=== PATIENT | female | born 1980 | race Caucasian/White ===

== ENCOUNTER 2017-10-04 10:00 | Inpatient (IN) | payer BC ==
[2017-10-03 15:04] VITALS: BMI 51.2
[2017-10-04] MEDS ORDERED: CITRIC ACID-SODIUM CITRATE 15 ML CUP PO ONE (10:37)
[2017-10-04] MEDS ORDERED: LACTATED RINGERS 1,000 ML IV ONE (10:37)
[2017-10-04 11:16] LABS: Basophils # (A) 0.1 k/uL (0-0.2); Basophils % (A) 0 %; Eosinophils # (A) 0.2 k/uL (0-0.7); Eosinophils % (A) 1 %; HCT 35.8 % (34.0-46.0); HGB 11.7 gm/dL (11.4-16.0); Lymphocytes # (A) 2.1 k/uL (1.0-4.8); Lymphocytes % (A) 15 %; MCH 27.2 pg (25.0-35.0); MCHC 32.8 g/dL (31.0-37.0); MCV 82.8 fL (80.0-100.0); Mean Platelet Volume 7.1; Monocytes # (A) 0.4 k/uL (0-1.0); Monocytes % (A) 3 %; Neutrophils # (A) 11.4 k/uL (1.3-7.7); Neutrophils % (A) 80 %; Platelet Count 239 k/uL (150-450); RBC 4.32 m/uL (3.80-5.40); WBC 14.3 k/uL (3.8-10.6)
--- NOTE | 2017-10-04 11:54 | P.HPOB ---
History of Present Illness H&P Date: 10/04/17 Chief Complaint: 39-4/7 weeks, previous section 2, undesired fertility The patient is a 37-year-old 3 para 2 scissors or 2 who presents at 39-4 /7 weeks as established by last menstrual period and confirmed by an 11 week ultrasound. She has a history of 2 previous sections and has requested a repeat section with intraoperative bilateral tubal occlusion using Filshie clips. The risks and complications have been discussed. Her has been essentially uncomplicated though she is morbidly obese and was found to have group B strep at her 35 week culture. The infant has also been breech for the third trimester and remains so at this time. She reportedly also has a fibroid uterus. Obstetrical history: 3 para 2002 with 2 term sections without complications. Current statistics are listed in history of present illness. EDC of 10/07/2017 was established by last menstrual period and confirmed by 11 week ultrasound. Laboratory workup demonstrates a blood type of A+ with a negative antibody screen. Rubella status is immune. Remainder of her laboratory workup was within normal limits. Early Glucola was elevated and followed up with a normal three-hour glucose tolerance test. Second trimester Glucola was within normal limits. Group B strep status is positive. Gynecologic history: Unremarkable with no history of any infections to include STDs. Review of Systems Review of systems is confined to history of present illness. Past Medical History Past Medical History: Hypertension Additional Past Medical History / Comment(s): amemia History of Any Multi-Drug Resistant Organisms: None Reported Past Surgical History: Section, Hernia Repair, Tonsillectomy Additional Past Surgical History / Comment(s): C/S x2 Past Anesthesia/Blood Transfusion Reactions: No Reported Reaction Past Psychological History: No Psychological Hx Reported Smoking Status: Former smoker Past Alcohol Use History: None Reported Additional Past Alcohol Use History / Comment(s): quit smoking 18 yrs, smoked for 2 yrs, 1/2 PPD Past Drug Use History: None Reported - Past Family History Mother Family Medical History: No Reported History Medications and Allergies Home Medications Medication Instructions Recorded Confirmed Type RX: Loratadine [Claritin] 10 mg PO DAILY 06/09/14 10/04/17 History Ferrous Sulfate [Feosol] 325 mg PO DAILY 10/03/17 10/04/17 History Labetalol [Trandate] 100 mg PO BID 10/03/17 10/04/17 History Pnv No.95/Ferrous Fum/Folic AC 1 each PO DAILY 10/03/17 10/04/17 History [ Multivitamin Tablet] Allergies Allergy/AdvReac Type Severity Reaction Status Date / Time codeine Allergy hives Verified 10/04/17 10:28 gluten AdvReac Diarrhea Verified 10/04/17 10:28 Exam - Vital Signs Vital signs: Vital Signs Temp Pulse Resp BP Pulse Ox 10/04/17 10:26 96.7 F L 87 16 143/72 98 Intake and Output 10/03/17 10/04/17 10/04/17 22:59 06:59 14:59 Other: Weight 166.468 kg 166.468 kg Patient Weight 10/05/17 06:59 Weight 166.468 kg In general, this is a morbidly obese white female in no acute distress. Her heart has a regular rhythm and rate without murmur. Her lungs are clear to auscultation bilaterally in all benitez. Her abdomen is morbidly obese, nondistended, has normal active bowel sounds, is soft, nontender, and without any palpable masses aside from uterine fundus. Her extremities without any cyanosis, clubbing, or edema and are nontender to palpation bilaterally. Digital cervical examination is deferred. Results Result Diagrams: 10/04/17 10:30 Abnormal Lab Results - Last 24 Hours (Table) 10/04/17 Range/Units 10:30 WBC 14.3 H (3.8-10.6) k/uL Neutrophils # 11.4 H (1.3-7.7) k/uL Assessment and Plan (1) Term Current Visit: Yes Status: Acute Code(s): Z34.80 - ENCOUNTER FOR SUPRVSN OF NORMAL , UNSP TRIMESTER SNOMED Code(s): 33067206 (2) Previous section Current Visit: Yes Status: Acute Code(s): Z98.891 - HISTORY OF UTERINE SCAR FROM PREVIOUS SURGERY SNOMED Code(s): 028151902 (3) Family planning Current Visit: Yes Status: Acute Code(s): Z30.09 - ENCOUNTER FOR OTH GENERAL CNSL AND ADVICE ON CONTRACEPTION SNOMED Code(s): 884307238 Plan: The patient is admitted for repeat section with intraoperative bilateral tubal occlusion using Filshie clips. The risks and complications have been thoroughly discussed. The typical hospital and postoperative courses have also been thoroughly discussed.
[2017-10-04] MEDS ORDERED: KETOROLAC 30 MG/ML 1 ML VIAL ONE (12:20)
[2017-10-04] MEDS ORDERED: OXYTOCIN 10 UNIT/ML 1 ML VIAL ONE (12:20)
[2017-10-04] MEDS ORDERED: NALBUPHINE 10 MG/ML AMPUL ONE (12:20)
[2017-10-04] MEDS ORDERED: ONDANSETRON 4 MG/2 ML VIAL ONE (12:20)
[2017-10-04] MEDS ORDERED: MORPHINE SULFATE (PF) 0.3 MG/0.3 ML SYR ONE (12:20)
[2017-10-04] MEDS ORDERED: NALOXONE 0.4 MG/ML 1 ML VIAL IV PRN (13:05)
[2017-10-04] MEDS ORDERED: MORPHINE SULFATE 4 MG/ML SYRINGE IVP PRN (13:05)
[2017-10-04] MEDS ORDERED: ONDANSETRON 4 MG/2 ML VIAL IVP PRN (13:05)
[2017-10-04] MEDS ORDERED: diphenhydrAMINE 50 MG/ML 1 ML VIAL IVP PRN ×3 (13:05→13:37)
[2017-10-04] MEDS ORDERED: NALBUPHINE 10 MG/ML AMPUL IV PRN (13:05)
[2017-10-04] MEDS ORDERED: KETOROLAC 30 MG/ML 1 ML VIAL IVP PRN (13:05)
[2017-10-04] MEDS ORDERED: SIMETHICONE 80 MG CHEWABLE PO PRN (13:37)
[2017-10-04] MEDS ORDERED: METOCLOPRAMIDE 5 MG/ML 2 ML VIAL IVP PRN (13:37)
[2017-10-04] MEDS ORDERED: ACETAMINOPHEN TAB 325 MG TAB PO PRN (13:37)
[2017-10-04] MEDS ORDERED: diphenhydrAMINE 50 MG CAP PO PRN (13:37)
[2017-10-04] MEDS ORDERED: ZOLPIDEM 5 MG TAB PO PRN (13:37)
[2017-10-04] MEDS ORDERED: diphenhydrAMINE 25 MG CAP PO PRN (13:37)
[2017-10-04] MEDS ORDERED: LANOLIN CREAM 5 GM TUBE TOPICAL PRN (13:37)
[2017-10-04] MEDS ORDERED: traMADol 50 MG TAB PO PRN (13:40)
[2017-10-04] MEDS ORDERED: OXYTOCIN 20 UNITS/1000 ML NS 1,000 ML IV SCH (13:45)
--- NOTE | 2017-10-04 13:50 | P.OP ---
Date of Procedure: 10/04/17 Preoperative Diagnosis: #1. 39-4/7 weeks, previous section x2 #2. Undesired fertility #3. Advanced maternal age Postoperative Diagnosis: Same Procedure(s) Performed: #1. Repeat low transverse section #2. Intraoperative bilateral tubal occlusion using Filshie clips Anesthesia: spinal Surgeon: Arnulfo Sloan Air Pollution Specialist #1: Montserrat Delgado Estimated Blood Loss (ml): 600 IV fluids (ml): 1,900 Urine output (ml): 250 Pathology: other (Placenta) Condition: stable Disposition: floor Operative Findings: Intraoperatively, the uterus was found to have minimal scarring but was significantly enlarged with fibroids. Intraoperatively, the fetus was found to be in vertex presentation though it was anticipated to be breech as that had been the presentation in the office for a number of weeks. In either case, she was delivered of a viable 8 lbs. 13 oz. baby boy with Apgars of 9 at 1 minute and 9 at 5 minutes delivered in the left occiput transverse position with the assistance of a mighty Vac vacuum. The placenta was delivered manually, intact , and grossly normal with a grossly normal three-vessel cord. The uterus was significantly enlarged as a general rule and was noted to have one large approximately 4-5 cm right fundal fibroid with multiple smaller fibroids scattered along the posterior wall of the uterus. The bilateral fallopian tubes were occluded using Filshie clips in the isthmic portion. Description of Procedure: The patient was prepped and draped in usual fashion after spinal anesthesia was administered by the anesthesiologist. A Pfannenstiel incision was made and extended into the abdominal cavity with minimal difficulty. The bladder peritoneum was noted to be significantly distal to our intended site of incision. A 2 cm incision was made in the transverse plane of the lower uterine segment which was found to be extraordinarily thick. Ultimately, the uterus was entered and clear fluid encountered. The incision was extended in both directions bluntly. The head was encountered in the incision and, secondary to the patient's morbid obesity fundal pressure oh would not produce the proper angle to help deliver the head. As result, a mighty Vac vacuum was placed on the occiput and the head elevated gently through the incision with fundal pressure as well. The nose and mouth were thoroughly suctioned and the remainder of the delivered onto the field where the cord was doubly clamped and cut and the passed for resuscitative measures with weight and Apgars as noted above. A segment of cord was doubly clamped, cut, and set aside should cord gases become necessary. The placenta was delivered manually and intact as noted above. The uterus was exteriorized and the interior cavity of the uterus swept of any remaining placental or membranous fragments. The margins of the incision were grasped with Almonte clamps and the incision was closed in 2 layers. The first layer was a running locking stitch of 0 chromic catgut from margin to margin followed by a running imbricating layer of 0 chromic catgut from margin to margin. Any small points of bleeding were made hemostatic with the Bovie. The uterine and ovarian findings are as noted above with the uterus being significantly enlarged as a general rule and fibroids as noted above as well. Attention was turned to the fallopian tubes where a Filshie clip was placed across the isthmic portion of each fallopian tube and firmly affixed. The uterus was replaced within the abdominal cavity after suctioning the posterior cul-de-sac with a guard. The gutters were swept of any remaining blood, fluid, or clot and the incision reexamined. Any further small points of bleeding were made hemostatic with the Bovie. Once hemostasis was established, the parietal peritoneum was loosely reapproximated in the layer of muscles examined and made hemostatic with the Bovie. The fascia was closed with 2 running stitches of 0 Vicryl proceeding from lateral margins to the midpoint. The subcutaneous tissues were irrigated, made hemostatic with the Bovie, and reapproximated with a running stitch of 30 plain catgut. The skin was reapproximated with a running subcuticular stitch of 4-0 Vicryl from margin to margin followed by half-inch Steri-Strips placed with Mastisol. Estimated blood loss for the case was approximately 600 mL. There were no complications. All sponge, instrument, and needle counts were correct. Both mother and infant are resting comfortably in recovery.
[2017-10-04] MEDS: LACTATED RINGERS 1,000 ML IV SCH ×3 (17:08→22:20)
[2017-10-04] MEDS: SENNOSIDES-DOCUSATE SODIUM 1 EACH TAB PO SCH (21:44)
[2017-10-05] MEDS: LACTATED RINGERS 1,000 ML IV SCH ×2 (04:51→18:09)
[2017-10-05 06:54] LABS: Basophils # (A) 0.1 k/uL (0-0.2); Basophils % (A) 0 %; Eosinophils # (A) 0.2 k/uL (0-0.7); Eosinophils % (A) 1 %; HCT 30.2 % (34.0-46.0); Lymphocytes # (A) 2.6 k/uL (1.0-4.8); Lymphocytes % (A) 19 %; MCH 26.8 pg (25.0-35.0); MCHC 31.7 g/dL (31.0-37.0); MCV 84.4 fL (80.0-100.0); Mean Platelet Volume 7.8; Monocytes # (A) 0.5 k/uL (0-1.0); Monocytes % (A) 4 %; Neutrophils # (A) 10.2 k/uL (1.3-7.7); Neutrophils % (A) 75 %; Platelet Count 205 k/uL (150-450); RBC 3.57 m/uL (3.80-5.40); RDW 13.9 % (11.5-15.5); WBC 13.7 k/uL (3.8-10.6)
[2017-10-05 07:26] LABS: HGB 9.6 gm/dL (11.4-16.0)
[2017-10-05] MEDS: SENNOSIDES-DOCUSATE SODIUM 1 EACH TAB PO SCH ×2 (07:44→21:51)
--- NOTE | 2017-10-05 10:32 | P.PN ---
Progress Note - Text Progress Note Date: 10/05/17 Postoperative day 1 status post section under spinal anesthesia, and intrathecal morphine given for postoperative analgesia, patient doing well, there is no anesthesia related complications, Patient had no headache, vital signs stable , Assessment and plan= postop day 1 status post , doing well there is no anesthesia related complication.
--- NOTE | 2017-10-05 10:39 | P.PNOBGPC ---
Subjective - Subjective Principal diagnosis: Repeat section Interval history: Postop day 1 status post repeat low transverse section and bilateral tubal ligation. She has not been able to spontaneously void since her Summers catheter was removed. She has been straight cath 1 for a large amount of urine. She is complaining of some bladder fullness and discomfort at this time. Patient reports: Reports appetite normal, Reports pain well controlled, Reports ambulating normally, Denies voiding normally, Denies dizzy ambulation, Denies nauseated : doing well Objective - Vital Signs Latest vital signs: Vital Signs Temp Pulse Resp BP Pulse Ox 10/05/17 08:00 98.4 F 68 16 99/62 10/05/17 07:24 18 10/05/17 06:00 16 10/05/17 04:00 98.2 F 78 16 105/59 98 10/05/17 02:00 16 10/05/17 00:00 98.3 F 68 16 101/58 98 10/04/17 21:44 18 97 10/04/17 20:00 98.3 F 69 18 103/56 97 10/04/17 18:05 16 98 10/04/17 16:05 16 10/04/17 15:35 98.4 F 65 16 115/56 98 10/04/17 15:05 80 16 101/65 98 10/04/17 14:35 98.4 F 68 16 110/57 10/04/17 14:20 76 16 96/53 98 10/04/17 14:05 80 16 105/56 98 10/04/17 13:50 72 16 109/59 97 10/04/17 13:35 98.4 F 68 16 108/57 97 Intake and Output 10/04/17 10/05/17 10/05/17 22:59 06:59 14:59 Intake Total 500 Output Total 1000 500 Balance -500 -500 Intake: Oral 500 Output: Urine 400 500 Uretheral (Summers) 500 Estimated Blood Loss 600 Other: Voiding Method Toilet # Voids 0 - Exam Extremities: Present: edema Abdomen: Present: soft Incision: Present: dry, dressed Uterus: Present: other (Unable to palpate) - Labs Labs: Abnormal Lab Results - Last 24 Hours (Table) 10/04/17 10/05/17 Range/Units 10:30 06:36 WBC 14.3 H 13.7 H (3.8-10.6) k/uL RBC 3.57 L (3.80-5.40) m/uL Hgb 9.6 L D (11.4-16.0) gm/dL Hct 30.2 L (34.0-46.0) % Neutrophils # 11.4 H 10.2 H (1.3-7.7) k/uL Assessment and Plan (1) Advanced maternal age (AMA) in Current Visit: Yes Status: Acute Code(s): TIO5011 - SNOMED Code(s): 438136601 (2) Family planning Current Visit: Yes Status: Acute Code(s): Z30.09 - ENCOUNTER FOR OTH GENERAL CNSL AND ADVICE ON CONTRACEPTION SNOMED Code(s): 839285552 (3) Obesity Current Visit: Yes Status: Acute Code(s): E66.9 - OBESITY, UNSPECIFIED SNOMED Code(s): 279935382 (4) Previous section Current Visit: Yes Status: Acute Code(s): Z98.891 - HISTORY OF UTERINE SCAR FROM PREVIOUS SURGERY SNOMED Code(s): 739894775 (5) S/P section Narrative/Plan: Postop day 1 status post repeat low transverse section and bilateral tubal ligation. Straight cath when necessary for inability to void status post spinal anesthetic. I anticipate this will resolve today. Otherwise routine care. Current Visit: Yes Status: Acute Code(s): Z98.891 - HISTORY OF UTERINE SCAR FROM PREVIOUS SURGERY SNOMED Code(s): 326488687 (6) Term Current Visit: Yes Status: Acute Code(s): Z34.80 - ENCOUNTER FOR SUPRVSN OF NORMAL , UNSP TRIMESTER SNOMED Code(s): 86546591
[2017-10-05] MEDS: IBUPROFEN 600 MG TAB PO PRN (18:08)
[2017-10-05 22:42] VITALS: RESP 18
[2017-10-06] MEDS: IBUPROFEN 600 MG TAB PO PRN (08:19)
[2017-10-06] MEDS: SENNOSIDES-DOCUSATE SODIUM 1 EACH TAB PO SCH (08:19)
[2017-10-06 09:13] VITALS: BP 136/71; PULSE 93; TEMP 98.1
--- NOTE | 2017-10-06 11:19 | P.DS ---
Providers Date of admission: 10/04/17 10:00 Expected date of discharge: 10/06/17 Attending physician: Arnulfo Sloan Primary care physician: Justin Vincent - Discharge Diagnosis(es) (1) Advanced maternal age (AMA) in Current Visit: Yes Status: Acute (2) Family planning Current Visit: Yes Status: Acute (3) Obesity Current Visit: Yes Status: Acute (4) Previous section Current Visit: Yes Status: Acute (5) S/P section Current Visit: Yes Status: Acute (6) Term Current Visit: Yes Status: Acute (7) Fibroid uterus Current Visit: Yes Status: Acute (8) Hypertension Current Visit: Yes Status: Acute Hospital Course: This is a 37-year-old woman who is admitted at 39+ weeks gestation for scheduled repeat low transverse section and bilateral tubal ligation. Please see the history and physical for complete details. Following admission the patient went to the operating room where she underwent an uncomplicated repeat low transverse section under spinal anesthetic. Findings at the time of surgery were significant for maternal morbid obesity, enlarged fibroid uterus and male infant in the vertex presentation. Weight was 8 lbs. 13 oz. Apgars 9 at 1 minute and 9 at 5 minutes. She underwent a bilateral tubal occlusion with Filshie clips. Her postoperative course was unremarkable. By postoperative day #1 she did have some difficulty voiding spontaneously that did require straight catheter 2 this then did resolve. Otherwise her incision appeared to be well healing, her vital signs were stable and she was able to ambulate and void without difficulty. She was therefore discharged home on postoperative day #2 with routine instructions for care and follow-up. Procedures: Repeat low transverse section and bilateral tubal ligation Patient Condition at Discharge: Good Plan - Discharge Summary Discharge Rx Participant: No New Discharge Prescriptions: New Ibuprofen [Motrin] 600 mg PO Q6HR PRN #30 tab PRN Reason: Mild Pain Or Fever >= 100.5 No Action Loratadine [Claritin] 10 mg PO DAILY Pnv No.95/Ferrous Fum/Folic AC [ Multivitamin Tablet] 1 each PO DAILY Ferrous Sulfate [Feosol] 325 mg PO DAILY Labetalol [Trandate] 100 mg PO BID Discharge Medication List Loratadine [Claritin] 10 mg PO DAILY 06/09/14 [History] Ferrous Sulfate [Feosol] 325 mg PO DAILY 10/03/17 [History] Labetalol [Trandate] 100 mg PO BID 10/03/17 [History] Pnv No.95/Ferrous Fum/Folic AC [ Multivitamin Tablet] 1 each PO DAILY [History] Ibuprofen [Motrin] 600 mg PO Q6HR PRN #30 tab 10/06/17 [Rx] Follow up Appointment(s)/Referral(s): Arnulfo Sloan MD [STAFF PHYSICIAN] - 2 Weeks Activity/Diet/Wound Care/Special Instructions: Follow-up in 2 weeks after surgery in the office. Call the office with any concerning signs or symptoms including fever greater than 101, severe abdominal pain, heavy vaginal bleeding, signs of wound infection, increased swelling or redness of the lower extremities, signs of depression. No driving for 2 weeks after surgery. No heavy lifting or vigorous activity until reevaluated in the office. No intercourse for 6 weeks after delivery.
== END 2017-10-06 14:15 | disposition home or self-care (01) | DRG 765 ==
LOC: 4FBP 10:00
PROVIDERS: ADMIT Obstetrics & Gynecology; ATTEND Obstetrics & Gynecology
PROC: 0UL70CZ Occlusion of Bilateral Fallopian Tubes with Extraluminal Device, Open Approach (ICD-10-PCS; 2017-10-04)
PROC: 10D00Z1 Extraction of Products of Conception, Low, Open Approach (ICD-10-PCS; principal; 2017-10-04 12:20)
DX: O34.211 Maternal care for low transverse scar from previous cesarean delivery (principal); Z68.43 Body mass index [BMI] 50.0-59.9, adult; E66.01 Morbid (severe) obesity due to excess calories; Z37.0 Single live birth; O16.4 Unspecified maternal hypertension, complicating childbirth; O34.13 Maternal care for benign tumor of corpus uteri, third trimester; O99.824 Streptococcus B carrier state complicating childbirth; O99.214 Obesity complicating childbirth; Z3A.39 39 weeks gestation of pregnancy; Z87.891 Personal history of nicotine dependence; Z79.899 Other long term (current) drug therapy; Z88.5 Allergy status to narcotic agent; Z91.018 Allergy to other foods
CPT/HCPCS: 85025; 88307

== ENCOUNTER → 2022-11-28 | Outpatient (CLI) | payer BC ==
--- NOTE | 2022-12-03 06:49 | MM ---
Reason for Exam: Screening (asymptomatic). Baseline mammogram. Patient History: Menarche at age 11. First Full-Term at age 20. Premenopausal. Last menstrual period: 11/11/2022 Risk Values: Ada 5 year model risk: 0.6%. NCI Lifetime model risk: 8.8%. Prior Study Comparison: Patient's first Mammogram. Tissue Density: There are scattered fibroglandular densities. Findings: There is no suspicious group of microcalcifications or new suspicious mass in either breast. Overall Assessment: Negative, BI-RAD 1 Management: Screening Mammogram of both breasts in 1 year. . Patient should continue monthly self-breast exams. A clinical breast exam by your physician is recommended on an annual basis. This exam should not preclude additional follow-up of suspicious palpable abnormalities. Note on Ada scores and lifetime risk: 1. A Ada score greater than 3% is considered moderate risk. If this is the case, consider specialist referral to assess eligibility for a risk reducing agent. 2. If overall lifetime risk for the development of breast cancer is 20% or higher, the patient may qualify for future screening with alternating mammogram and breast MRI. Electronically signed and approved by: Vadim Yost M.D.
== END | disposition home or self-care (01) ==
LOC: RADMAMWWP 07:57
PROVIDERS: ATTEND Family Medicine
DX: Z12.31 Encounter for screening mammogram for malignant neoplasm of breast (principal)
CPT/HCPCS: 77067